=== PATIENT | female | born 1970 | race Caucasian/White ===

== ENCOUNTER 2021-10-27 16:00 | Emergency (ER) | payer OTHER, SELFPAY ==
[2021-10-27 16:04] VITALS: BP 148/90; PULSE 119; RESP 20; TEMP 37.3; O2SAT 100
--- NOTE | 2021-10-27 16:16 | ED.SKABFB ---
HPI - Skin/Abscess/Foreign Bdy General Chief complaint: Skin/Abscess/Foreign Body Stated complaint: Bite on neck Time Seen by Provider: 10/27/21 16:05 Source: patient Mode of arrival: ambulatory Limitations: no limitations History of Present Illness HPI narrative: Ms. Alston is a 51-year-old female patient presenting to the clinic today with complaints of a possible spider bite or mosquito bite to her neck. She reports that the area is itchy. She has put some hydrogen peroxide on it and that has improved the itching. She denies any pain or difficulty swallowing. Related Data Home Medications Medication Instructions Recorded Confirmed No Home Medications 10/27/21 10/27/21 Allergies Allergy/AdvReac Type Severity Reaction Status Date / Time Penicillins Allergy Intermediate Rash Verified 10/27/21 16:15 Review of Systems Review of Systems: Pertinent positives per HPI. Patient denies any fever, chills, rash, headache, visual changes, dizziness, cough, runny nose, sore throat, shortness of breath, chest pain, palpitations, nausea, vomiting, diarrhea, constipation, abdominal pain, or any urinary issues. PMFSH Comments At the time of my signature, I reviewed and agree with the nursing past medical, surgical, social, and family history. There is no relevant family history pertinent to the patient complaint. Exam Narrative: General: Well-developed, well nourished, in no apparent distress Head: Normocephalic, atraumatic. Cardio: Regular rate and rhythm, s1 and s2 normal, no murmur appreciated. Resp: Clear to auscultation bilaterally, no rhonchi, rales, wheezing or rubs. Integumentary: [place], warm, and dry, intact without lesion, quarter sized localized insect bite/allergic reaction to the anterior neck with mild induration, itchiness, and redness. Course Course Emergency Course: Portions of this record may have been created with voice recognition software. Level of Care: Express Care Visit Vital Signs Vital signs: Vital Signs Temperature 37.3 C 10/27/21 16:04 Pulse Rate 119 H 10/27/21 16:04 Respiratory Rate 20 10/27/21 16:04 Blood Pressure 148/90 H 10/27/21 16:04 Pulse Oximetry 100 10/27/21 16:04 Oxygen Delivery Room Air 10/27/21 16:04 Temperature 37.3 C 10/27/21 16:04 Pulse Rate 119 H 10/27/21 16:04 Respiratory Rate 20 10/27/21 16:04 Blood Pressure 148/90 H 10/27/21 16:04 Pulse Oximetry 100 10/27/21 16:04 Oxygen Delivery Room Air 10/27/21 16:04 Vital signs reviewed Discharge Plan Discharge Clinical Impression: Insect bite Patient Disposition: Home, Self-Care Condition: Stable Instructions: Antibiotic Form, Insect Bite or Sting (ED) Additional Instructions: May take 25 to 50 mg of Benadryl every 6 hours as needed for itching/swelling May apply hydrocortisone cream or Benadryl cream to the affected area Follow-up with your PCP in 3 to 5 days if symptoms persist or sooner if they worsen Go to the ED if you develop any shortness of breath, tongue swelling, trouble swallowing, drooling, or painful swallowing. Prescriptions: No Action No Home Medications Follow-up/Referrals: PHYSICIAN NOT ON STAFF,NONSTAFF [Primary Care Provider] - Time of Disposition: 16:18 Quality NIHSS Nursing Documentation ED NIHSS nursing documentation: reviewed/agree
== END 2021-10-27 16:20 | disposition home or self-care (01) ==
PROVIDERS: Emergency Provider Nurse Practitioner Family
DX: S10.96XA Insect bite of unspecified part of neck, initial encounter (principal); W57.XXXA Bitten or stung by nonvenomous insect and other nonvenomous arthropods, initial encounter
CPT/HCPCS: 99211; G0463